=== PATIENT | male | born 1965 ===

== ENCOUNTER 2017-01-21 20:03 | Emergency (ER) | payer BC ==
[2017-01-21 21:05] VITALS: BP 149/97
== END 2017-01-21 21:08 | disposition left against medical advice (07) ==
LOC: ED 20:03
DX: Z01.30 Encounter for examination of blood pressure without abnormal findings (principal); Z53.21 Procedure and treatment not carried out due to patient leaving prior to being seen by health care provider
CPT/HCPCS: 99282